=== PATIENT | female | born 1940 | race Caucasian/White ===

== ENCOUNTER 2018-05-14 09:49 | Emergency (ER) | payer MEDICAID ==
[~2018-05-14] VITALS: Ht 162.6 cm; Wt 68.0 kg
--- NOTE | 2018-05-14 10:05 | NUR ---
ED Nurse Note: PT WALKED IN TO ER TODAY FROM HOME. AOX4. PT C/O RIGHT FOOT PAIN, 10/ X 1 WEEK AGO. PT DENIES INJURY OR TRAUMA. SKIN CLEAN, DRY, AND INTACT, FULL ROM OF EXTREMITY AND DIGITS. CIRCULATION AND SENSATION INTACT, CAP REFILL <3 SECONDS, AND 5/5 MUSCLE STRENGTH.
[2018-05-14 10:09] VITALS: BP 134/82
--- NOTE | 2018-05-14 10:28 | NUR ---
ED Nurse Note: XRAY AT BEDSIDE
--- NOTE | 2018-05-14 11:07 | Diagnostic Imaging Report ---
EXAM: XR Right Foot Complete, 3 or More Views CLINICAL HISTORY: PAIN TECHNIQUE: Frontal, lateral and oblique views of the right foot. COMPARISON: No relevant prior studies available. FINDINGS: Bones/joints: No visible fracture or dislocation. Mild hallux valgus deformity with early bunion formation. Small plantar calcaneal bony spur. Soft tissues: Unremarkable. No radiopaque foreign body. Other findings: Mild hammertoe deformities, most prominent in the second toe. IMPRESSION: 1. No visible fracture or dislocation. 2. Mild hallux valgus deformity with early bunion formation. 3. Mild hammertoe deformities, most prominent in the second toe.
[2018-05-14] MEDS ORDERED: TYLENOL EXTRA500 MG ORAL (11:16)
--- NOTE | 2018-05-14 11:21 | NUR ---
ED Nurse Note: PT LAYING PEACEFULLY IN BED IN NAD. AOX4. PRESCRIPTIONS AND DISCHARGE PAPERWORK EXPLAINED TO PT. PT VERBALIZES UNDERSTANDING AND ALL QUESTIONS ANSWERED. PRESCRIPTIONS AND DISCHARGE PAPERWORK GIVEN TO PT AND ID WRISTBAND REMOVED. PT WALKED OUT OF ER WITH STEADY GAIT AND ALL BELONGINGS.
[2018-05-14 11:22] VITALS: BP 128/80
--- NOTE | 2018-05-14 14:25 | Emergency Room Report ---
History of Present Illness General Chief Complaint: Pain Source: Patient Present Illness HPI 77-year-old female presents ED for evaluation. Patient complaining of right foot pain. Started one week ago. Denies any recent fall or injury. Pain is throbbing, 5 out of 10, nonradiating. Worse with walking. No other aggravating relieving factors. Denies any other associated symptoms Allergies: Coded Allergies: PENICILLINS (Verified Allergy, Unknown, 05/14/18) Patient History Past Medical History: DM, HTN Past Surgical History: none Pertinent Family History: none Social History: Denies: smoking, alcohol use, drug use Now: No Immunizations: UTD Reviewed Nursing Documentation: PMH: Agreed; PSxH: Agreed Nursing Documentation-PMH Past Medical History: No History, Except For Hx Hypertension: Yes Hx Diabetes: Yes Review of Systems All Other Systems: negative except mentioned in HPI Physical Exam Vital Signs Date Time Temp Pulse Resp B/P (MAP) Pulse Ox O2 Delivery O2 Flow Rate FiO2 05/14/18 09:58 98.2 81 14 141/80 96 Room Air Sp02 EP Interpretation: reviewed, normal General Appearance: no apparent distress, alert, GCS 15, non-toxic Head: normocephalic Eyes: bilateral eye normal inspection, bilateral eye PERRL ENT: normal ENT inspection Neck: normal inspection Respiratory: normal inspection Cardiovascular #1: normal inspection Gastrointestinal: normal inspection Rectal: deferred Genitourinary: no CVA tenderness Musculoskeletal: normal range of motion, tender - base of foot. no crepitus or bruising Neurologic: alert, oriented x3, responsive, motor strength/tone normal, sensory intact, speech normal Psychiatric: judgement/insight normal, memory normal, mood/affect normal, no suicidal/homicidal ideation Skin: normal inspection Lymphatic: normal inspection Medical Decision Making Diagnostic Impression: Primary Impression: Foot pain Qualified Codes: M79.671 - Pain in right foot ER Course Hospital Course 77-year-old F presents to ED complaining of R foot pain Differential diagnoses include: Fracture, dislocation, sprain, contusion Clinical course Patient placed on stretcher. After initial history and physical, I ordered xrays of R foot Xrays read shows no acute fracture/dislocation. Consideration for soft tissue injury versus plantar fasciitis. Discussed findings with patient. Recommend ice, analgesics, modified activity. Safe for discharge and close outpatient follow-up. I'll provide orthopedic referral Diagnosis - foot pain Stable and discharged to home with prescription for tylenol. apply ice, keep elevated. weight bear as tolerated. Followup with PMD/ortho. Return to ED if symptoms recur or worsen Other X-Ray Diagnostic Results Other X-Ray Diagnostic Results : X-Ray ordered: R foot # of Views/Limited Vs Complete: 3 View Indication: Pain EP Interpretation: Yes Interpretation: no dislocation, no soft tissue swelling, no fractures Impression: No acute disease Electronically Signed by: Electronically signed by Joe Verdin MD Last Vital Signs Date Time Temp Pulse Resp B/P (MAP) Pulse Ox O2 Delivery O2 Flow Rate FiO2 05/14/18 11:22 98.5 72 16 128/80 100 Room Air Status: improved Disposition: HOME, SELF-CARE Condition: Stable Scripts Acetaminophen* (TYLENOL EXTRA STRENGTH*) 500 Mg Tablet 500 MG ORAL Q8H PRN for Prn Headache/Temp > 101, #30 TAB 0 Refills Prov: Joe Verdin MD 05/14/18 [facility]: [facility] Open 24 hour /7 days a week by Appointment Only [address] [facility] [address] [place] [address] [facility] [address] Patient Instructions: Plantar Fasciitis With [facility] Joe Verdin MD May 14, 2018 14:25
== END 2018-05-14 11:22 | disposition home or self-care (01) ==
LOC: EMR 10:16
DX: M79.671 Pain in right foot (principal); I10 Essential (primary) hypertension; E11.9 Type 2 diabetes mellitus without complications; Z88.0 Allergy status to penicillin; M20.11 Hallux valgus (acquired), right foot; M21.611 Bunion of right foot; M20.41 Other hammer toe(s) (acquired), right foot
CPT/HCPCS: 99283